=== PATIENT | male | born 1970 | race Caucasian/White ===

== ENCOUNTER 2023-06-07 10:57 | Emergency (ER) | payer OTHER, SELFPAY ==
[2023-06-07 11:03] VITALS: BP 139/98
[2023-06-07 11:04] VITALS: BMI 21.8
[2023-06-07 11:12] LABS: % Basophils 0.8 % (0-2); % Eosinophils 0.5 % (0-6); % Immature Granulocytes 0.5 % (0-0.5); % Lymphocytes 9.9 % (20.5-51.1); % Monocytes 5.5 % (1.7-9.3); % Neutrophils 82.8 % (42.2-75.2); Absolute Basophils 0.1 10^3/uL (0-0.2); Absolute Lymphocytes 0.8 10^3/uL (1.2-3.4); Absolute Monocytes 0.4 10^3/uL (0.1-0.6); Absolute Neutrophils 6.4 10^3/uL (1.4-6.5); Hematocrit 41.6 % (39.0-52.0); Hemoglobin 14.3 g/dL (13.0-18.0); Mean Corp Hgb Conc. 34.4 g/dL (33.0-37.0); Mean Corpuscular Hgb 34.4 pg (27.0-31.0); Mean Platelet Volume 10.1 fL (7.4-10.4); Nucleated Red Blood Cells % 0 % (-); Platelet Count 159 10^3/uL (130-400); Red Blood Cell Count 4.16 10^6/uL (4.70-6.10); Red Cell Dist. Width 12.9 % (11.5-14.5); White Blood Cell Count 7.8 10^3/uL (4.8-10.8)
[2023-06-07 11:41] LABS: Urine Albumin Trace (Neg - Trace); Urine Bilirubin Negative (Negative); Urine Character Clear (Clear); Urine Color Yellow; Urine Glucose Negative (Negative); Urine Ketone 3+ (Negative); Urine Leukocyte Negative (Negative); Urine Nitrite Negative (Negative); Urine Occult Blood Negative (Negative); Urine Specific Gravity 1.025 (<1.030); Urine Urobilinogen Negative (Neg - 1+)
[2023-06-07 11:48] LABS: ALT (SGPT) 74 U/L (0-50); AST (SGOT) 96 U/L (17-59); Albumin 5.1 g/dl (3.5-5.0); Alkaline Phosphatase 140 U/L (38-126); Blood Urea Nitrogen 12 mg/dl (9-20); Calcium 9.5 mg/dl (8.4-10.2); Carbon Dioxide 17 mmol/L (22-30); Chloride 102 mmol/L (98-107); Estimated Creatinine Clearance 103 ml/min; Glucose 92 mg/dl (70-99); Potassium 3.8 mmol/L (3.5-5.1); Sodium 138 mmol/L (135-145); Total Bilirubin 0.6 mg/dl (0.2-1.3); Total Protein 8.1 g/dl (6.3-8.2); eGFR > 60.00
[2023-06-07 12:00] VITALS: BP 118/71
[2023-06-07 12:01] LABS: Amphetamines Negative (Negative); Barbiturates Negative (Negative); Benzodiazepines Negative (Negative); Buprenorphine Negative (Negative); Cocaine Positive (Negative); Marijuana Positive (Negative); Methadone Negative (Negative); Methamphetamines Negative (Negative); Opiates Negative (Negative); Phencyclidine Negative (Negative); Tricyclic Antidepressants Negative (Negative)
--- NOTE | 2023-06-07 12:19 | ED.GENMED ---
History of Present Illness
General
Chief Complaint: Weakness
Time Seen by Provider: 06/07/23 11:35
Travel History
Have you had any contact with someone who has COVID-19?: No
Do you have any symptoms of coronavirus? Fever > 100 degrees, chills, cough, shortness of breath, sore throat, loss of taste or smell, muscle aches, or headache?: No
History of Present Illness
History of Present Illness:
52-year-old male with history of polysubstance abuse presents to the emergency department for evaluation of sudden onset of shaking chills and weakness that developed upon awakening today. He states this has happened on 3-4 separate occasions in
the past without underlying medical diagnosis. Symptoms lasted 2 to 3 hours before resolving. He currently feels well with no complaints. He does endorse use of alcohol, cocaine, and marijuana last night, states 'that was a mild night for me'.
Review of Systems
Review of Systems
Allergies reviewed?: Yes
All Other Systems: ROS reviewed and negative except as documented in HPI and ROS
Phy Exam
Physical Exam
Physical Exam:
GEN: Well appearing, NAD, WDWN
Eyes: PERRLA, EOMs intact, no scleral icterus
HENT: NCAT, oral mucosa moist
Lungs: CTAB, no wheezes, rales, rhonchi, normal chest wall excursion
Cardiac: RRR, no M/R/G, no peripheral edema. Radial pulses 2+ bilat
Abdomen: S, NT, ND, NABS, no masses or hepatosplenomegaly
Neuro: AO x 3
MSK: No gross deformity or ecchymosis. No edema. No digital clubbing
Skin: No rashes, petechiae. Normal color, no pallor or jaundice.
Psych: Calm, cooperative, proper hygiene
Course
Orders/Labs/Results
Orders:
Orders
06/07/23 11:05
EKG [Electrocardiogram (*1)] Urgent
Reason for Study: Fatigue / Weakness
EKG- Treatment ONCE
06/07/23 11:06
Complete Blood Count/With Diff Urgent
06/07/23 11:27
Comprehensive Metabolic Panel Urgent
Fentanyl, Urine Urgent
Urinalysis Reflex To Culture Urgent
Date Specimen was Collected: 06/07/23
Time Specimen was Collected: 11:18
Urine Drug Abuse Screen Urgent
Date Specimen was Collected: 06/07/23
Time Specimen was Collected: 11:18
06/07/23 12:15
Troponin I Urgent
Abnormal Lab Results
06/07/23 06/07/23
11:06 11:27
RBC 4.16 L 10^6/uL
(4.70-6.10)
MCV 100.0 H fL
(80.0-94.0)
MCH 34.4 H pg
(27.0-31.0)
Absolute Lymphs (auto) 0.8 L 10^3/uL
(1.2-3.4)
Neutrophils % 82.8 H %
(42.2-75.2)
Lymphocytes % 9.9 L %
(20.5-51.1)
Carbon Dioxide 17 L mmol/L
(22-30)
AST 96 H U/L
(17-59)
ALT 74 H U/L
(0-50)
Alkaline Phosphatase 140 H U/L
(38-126)
Albumin 5.1 H g/dl
(3.5-5.0)
Urine Ketones 3+ A
(Negative)
Urine Cocaine Screen Positive H
(Negative)
U Marijuana (THC) Screen Positive H
(Negative)
06/07/23 11:06
06/07/23 11:27
Vital Signs
Initial and Last Documented VS:
Initial Vital Signs
Pulse Resp BP Pulse Ox
61 14 139/98 100
06/07/23 11:03 06/07/23 11:03 06/07/23 11:03 06/07/23 11:03
Last Documented Vital Signs
Temp Pulse Resp BP Pulse Ox
97.5 F 78 13 112/69 100
06/07/23 11:30 06/07/23 13:15 06/07/23 13:15 06/07/23 13:00 06/07/23 13:15
MDM/Problems Addressed
MDM/Problems Addressed:
Patient appears clinically well, labs are reassuring. May have been a response to his excessive polysubstance use last night. Advised cessation of illicit substance use
Comment
Comment:
EKG independently interpreted by me shows normal sinus rhythm at a rate of [address] changes concerning for ischemia, QTc of 465
*Critical Care Note
Total Time (30-74mins, 75-104mins- exclusive of procedures): Not Applicable
ED Attending Note
-
Portions of this chart may have been created with voice recognition software.� Occasional wrong word or��sound alike� substitutions may have occurred due to the inherent limitations of voice recognition software.
Discharge Plan
Departure
Patient Disposition: Home (Routine Discharge)
Date of Disposition: 06/07/23
Time of Disposition: 13:11
Patient with high blood pressure during this ER visit?: No
Discharge Problem:
Sweating
Instructions: Generalized Weakness (DC)
Referrals:
NONE,* [Family Provider] -
Activity Restrictions/Additional Instructions:
Your lab testing is all reassuring
The cause of your symptoms is not clear at this time
If symptoms worsen and do not improve, consider returning for re-evaluation
Please consider discontinuing use of cocaine as this may be contributing to your symptoms
Interventions
Interventions:
*Risk Screen - Suicide Last Done: 06/07/23 11:01
*General Assessment Last Done: 06/07/23 11:01
*Neglect/Abuse Screening Last Done: 06/07/23 11:01
ED- Fall Risk Assessment Last Done: 06/07/23 13:25
*ED COVID-19 Vaccine History Last Done: 06/07/23 11:01
*Nursing Disposition Last Done: 06/07/23 13:25
ED- Cardiac Assessment Last Done: 06/07/23 11:04
ED- Neurological Assessment Last Done: 06/07/23 11:04
ED- Pulmonary Assessment Last Done: 06/07/23 11:04
Discharge Date and Time
Discharge Date/Time: 06/07/23 13:26
Print Language: DIVEHI
[2023-06-07 12:24] LABS: Fentanyl, Urine Negative (Negative)
[2023-06-07 12:57] LABS: Troponin I < 0.012 ng/ml
[2023-06-07 13:00] VITALS: BP 112/69
== END 2023-06-07 13:26 | disposition home or self-care (01) ==
LOC: EMR 10:57
PROVIDERS: Physician Assistant; EMERGENCY PHYSICIAN Student in an Organized Health Care Education/Training Program
DX: R61 Generalized hyperhidrosis (principal); F12.10 Cannabis abuse, uncomplicated; F19.90 Other psychoactive substance use, unspecified, uncomplicated
CPT/HCPCS: 99284; 80053; 80306; 80307; 81003; 84484; 85025; 93005

== ENCOUNTER 2023-06-14 20:13 | Emergency (ER) | payer OTHER, SELFPAY ==
[2023-06-14 20:15] VITALS: BP 160/100
[2023-06-14 21:32] VITALS: BMI 22.8
[2023-06-14 21:35] LABS: % Basophils 1.8 % (0-2); % Eosinophils 2.4 % (0-6); % Immature Granulocytes 0.2 % (0-0.5); % Lymphocytes 36.1 % (20.5-51.1); % Monocytes 12.1 % (1.7-9.3); % Neutrophils 47.4 % (42.2-75.2); Absolute Basophils 0.1 10^3/uL (0-0.2); Absolute Eosinophils 0.1 10^3/uL (0-0.7); Absolute Lymphocytes 1.8 10^3/uL (1.2-3.4); Absolute Monocytes 0.6 10^3/uL (0.1-0.6); Absolute Neutrophils 2.4 10^3/uL (1.4-6.5); Hematocrit 41.1 % (39.0-52.0); Hemoglobin 14.5 g/dL (13.0-18.0); Mean Corp Hgb Conc. 35.3 g/dL (33.0-37.0); Mean Corpuscular Hgb 35.4 pg (27.0-31.0); Mean Corpuscular Volume 100.2 fL (80.0-94.0); Mean Platelet Volume 9.9 fL (7.4-10.4); Nucleated Red Blood Cells % 0 % (-); Platelet Count 196 10^3/uL (130-400); Red Cell Dist. Width 12.9 % (11.5-14.5)
[2023-06-14 21:46] LABS: INR 0.88; PT 11.8 Sec (11.4-14.6)
[2023-06-14 21:49] LABS: ALT (SGPT) 107 U/L (0-50); AST (SGOT) 116 U/L (17-59); Albumin 4.9 g/dl (3.5-5.0); Alkaline Phosphatase 124 U/L (38-126); Blood Urea Nitrogen 7 mg/dl (9-20); Calcium 9.8 mg/dl (8.4-10.2); Carbon Dioxide 25 mmol/L (22-30); Chloride 103 mmol/L (98-107); Estimated Creatinine Clearance 108 ml/min; Glucose 102 mg/dl (70-99); Potassium 3.6 mmol/L (3.5-5.1); Sodium 139 mmol/L (135-145); Total Bilirubin 0.4 mg/dl (0.2-1.3); Total Protein 7.9 g/dl (6.3-8.2); eGFR > 60.00
[2023-06-14] MEDS: AUGMENTIN 875 MG/125 MG 1 TABLET PO (21:50)
[2023-06-14] MEDS: ADACEL 0.5 ML IM (21:51)
[2023-06-14] MEDS: RABAVERT RABIES VACC W-DILUENT 2.5 UNIT IM (22:18)
[2023-06-14] MEDS: HyperRAB 1200 UNIT IM (22:22)
--- NOTE | 2023-06-14 23:31 | ED.SKININJ ---
HPI-Injury
General
Chief Complaint: Bite
Source: patient
Exam Limitations: none
Time Seen by Provider: 06/14/23 20:55
Nursing documentation reviewed up to this point in time: agreed with
Travel History
Have you had any contact with someone who has COVID-19?: No
Do you have any symptoms of coronavirus? Fever > 100 degrees, chills, cough, shortness of breath, sore throat, loss of taste or smell, muscle aches, or headache?: No
History of Present Illness-Injury
Is this injury a work related problem?: No
Is pt an associate of [facility]?: No
Initial Injury comments:
Patient to ED for eval of bite to right forearm. 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 Yesterday he worked all day, went to bar with friends after work and then went home. States today he noticed 2 punctures to right forearm. He does not recall being
bit. Has no pain but notes localized redness and swelling. Brought self to ED for eval.
Past History
Past History
ED Past Medical History: None
ED Past Surgical History: None
Review of Systems
Review of Systems
Allergies reviewed?: Yes
All Other Systems: ROS reviewed and negative except as documented in HPI and ROS
Constitutional: Reports no symptoms
EENT: Reports no symptoms
Respiratory: Reports no symptoms
Cardiac: Reports no symptoms
ABD/GI: Reports no symptoms
Musculoskeletal: Reports no symptoms
Skin: Reports other (2 punctures measuring approx 4mm each to right forearm. No drainage, no pain. )
Neurological: Reports no symptoms
Psychiatric: Reports no symptoms
Skin Exam
Bite
right forearm:
Type: animal (unknown cause of bite)
Skin has: puncture wounds (2 puncture wounds)
Surrounding area around bite has: ecchymotic areas
Distal skin color and temperature: normal-warm & good color
Normal distal neurovascular exam: Yes
Phy Exam
General Physical Exam
General Presentation: well appearing and no apparent distress
General age: appears stated age
General Skin: warm and dry
General Habitus: normal
General Mental: alert
Musculoskeletal Exam
Musculoskeletal Exam: full ROM and neuro vasc intact
Skin Exam
Skin Exam: normal color, warm/dry, no rash and other (2 puncture wounds to right forearm concerning for bite. Unknown if bite is from insect or animal.)
Psychiatric Exam
Psychiatric Exam: normal mood/affect
Course
Orders/Labs/Results
Orders:
Orders
06/14/23 21:27
Complete Blood Count/With Diff Urgent
Comprehensive Metabolic Panel Urgent
PTT Urgent
Prothrombin Time Urgent
06/14/23 21:34
Amoxicillin 875 mg/Clav 125 mg [Augmentin 875 mg/125 mg] 1 tablet PO NOW STA
Tetanus/Diphth/Acelpertussis [Adacel] 0.5 ml IM .ONCE ONE
06/14/23 21:48
Rabies Immune Globulin/Pf [HyperRAB] 1,200 unit IM NOW STA
06/14/23 22:00
Rabies Vaccine (Pcec)/Pf [Rabavert Rabies Vacc W-Diluent] 2.5 unit IM .ONCE ONE
Abnormal Lab Results
06/14/23
21:27
RBC 4.10 L 10^6/uL
(4.70-6.10)
MCV 100.2 H fL
(80.0-94.0)
MCH 35.4 H pg
(27.0-31.0)
Monocytes % 12.1 H %
(1.7-9.3)
BUN 7 L mg/dl
(9-20)
Glucose 102 H mg/dl
(70-99)
AST 116 H U/L
(17-59)
ALT 107 H U/L
(0-50)
06/14/23 21:27
06/14/23 21:27
Vital Signs
Initial and Last Documented VS:
Initial Vital Signs
Temp Pulse Resp BP
97.1 F 100 18 160/100
06/14/23 20:15 06/14/23 20:15 06/14/23 20:15 06/14/23 20:15
Last Documented Vital Signs
Temp Pulse Resp BP
97.1 F 100 18 160/100
06/14/23 20:15 06/14/23 20:15 06/14/23 20:15 06/14/23 20:15
*Critical Care Note
Total Time (30-74mins, 75-104mins- exclusive of procedures): Not Applicable
Update Note
Update Note:
Bite to right forearm which occurred over the past 24 hours. Unknown cause of bite. Td updated in dept. Recommend rabies series to cover for possible animal/bat bite. Patient is agreeable to plan and series started in dept. Placed on augmentin.
He will follow upw ith PCP. He will complete vaccine at infusion center. Given instructions on s/s to return to ED and he is agreeable to plan.
ED Attending Note
-
Portions of this chart may have been created with voice recognition software.� Occasional wrong word or��sound alike� substitutions may have occurred due to the inherent limitations of voice recognition software.
Discharge Plan
Departure
Patient Disposition: Home (Routine Discharge)
Date of Disposition: 06/14/23
Time of Disposition: 21:50
Patient with high blood pressure during this ER visit?: No
Condition: Good
Covid-19: Not Applicable
Discharge Problem:
Animal bite of forearm
Instructions: Wound Care (DC), Rabies
Prescriptions:
New
amoxicillin-pot clavulanate 875-125 mg tablet
1 tab PO BID Qty: 14 0RF
RabAvert (PF) 2.5 unit Suspension For Reconstitution
1 ml IM . DIRECTED Qty: 3 0RF
Rx Instructions:
See Rabies Vaccine Post Exposure Prophylaxis Instruction Sheet for Dosing Instructions
Referrals:
NONE,* [Family Provider] -
Stand Alone Forms: Rabies Vaccine Post Exp Dosing
Activity Restrictions/Additional Instructions:
Return to the emergency department immediately for fever/chills, increasing pain/redness/swelling to your arm, or for any further concerns.
Interventions
Interventions:
*Risk Screen - Suicide Last Done: 06/14/23 20:15
*Neglect/Abuse Screening Last Done: 06/14/23 20:15
ED- Fall Risk Assessment Last Done: 06/14/23 22:10
*Nursing Disposition Last Done: 06/14/23 22:43
ED-Skin Assessment Last Done: 06/14/23 21:30
Discharge Date and Time
Discharge Date/Time: 06/14/23 22:44
Print Language: LATVIAN
== END 2023-06-14 22:44 | disposition home or self-care (01) ==
LOC: EMR 20:13
PROVIDERS: Nurse Practitioner; EMERGENCY PHYSICIAN Emergency Medicine
DX: S41.151A Open bite of right upper arm, initial encounter (principal); W55.81XA Bitten by other mammals, initial encounter; Z23 Encounter for immunization; Z20.3 Contact with and (suspected) exposure to rabies; Z29.14 Encounter for prophylactic rabies immune globulin
CPT/HCPCS: 99284; 90471; 96372 ×2; 80053; 85025; 85610; 85730; 90375; 90675; 90715

== ENCOUNTER 2023-06-29 15:07 | Outpatient (RCR) | payer OTHER, SELFPAY ==
[2023-06-17 15:12] VITALS: BP 142/77
[2023-06-17] MEDS: RABAVERT RABIES VACC W-DILUENT 2.5 UNIT IM (15:18)
[2023-06-22 15:15] VITALS: BP 141/88
[2023-06-22] MEDS: RABAVERT RABIES VACC W-DILUENT 2.5 UNIT IM (15:23)
[2023-06-29 15:14] VITALS: BP 126/78
[2023-06-29] MEDS: RABAVERT RABIES VACC W-DILUENT 2.5 UNIT IM (15:23)
== END 2023-06-30 10:51 | disposition home or self-care (01) ==
LOC: OID 15:07
PROVIDERS: ATTENDING PHYSICIAN Nurse Practitioner
DX: Z20.3 Contact with and (suspected) exposure to rabies (principal); Z23 Encounter for immunization
CPT/HCPCS: 90471; 90675